=== PATIENT | male | born 1965 | race Caucasian/White ===

== ENCOUNTER 2018-05-18 19:12 | Emergency (ER) | payer BC ==
--- NOTE | 2018-05-18 20:14 | RAD REPORT ---
EXAM DESCRIPTION: RAD - Abdomen Acute Series - 05/18/2018 8:02 pm CLINICAL HISTORY: Abdominal pain/constipation FINDINGS: The lungs appear clear. Free air is not seen beneath the diaphragm. The bowel gas pattern is unremarkable with a moderate to large amount of stool within the colon. Small calcification in the left pelvis probably represent phleboliths
[2018-05-18] MEDS ORDERED: MEPERIDINE HCL 25 MG/0.5 ML ONE (20:22)
[2018-05-18] MEDS ORDERED: NA CHLORIDE 0.9% 1,000 ML ONE (20:22)
[2018-05-18] MEDS ORDERED: PROMETHAZINE 25 MG/ML VIAL ONE (20:22)
[2018-05-18 20:35] LABS: Absolute Lymphocytes (CBC) 0.9 K/uL (0.7-4.9); Absolute Monocytes 0.6 K/uL (0.1-1.3); Basophils % 0.5 % (0-1.3); Eosinophils % 0.3 % (0-4.4); Hematocrit 52.6 % (39.6-49.0); Lymphocytes % 6.4 % (15.3-44.8); MCH 29.4 pg (27.0-35.0); MCV 86.9 fL (80-100); MPV 8.3 fL (7.6-11.3); Monocytes % 4.4 % (3.3-12.3); RBC Red Blood Cell Count 6.05 M/uL (4.33-5.43)
[2018-05-18] MEDS ORDERED: MINERAL OIL ENEMA 135 ML BTL PR ONE (20:37)
[2018-05-18] MEDS ORDERED: MAGNESIUM CITRATE 300 ML BOT ONE (20:37)
[2018-05-18 20:38] LABS: Potassium 3.5 mmol/L (3.5-5.1)
[2018-05-18 21:00] LABS: Platelet Estimate ADEQ; Platelets, Giant FEW; Urine White Blood Cell Casts OK
[2018-05-18 21:01] LABS: Blood Morphology Comment NOT SEEN (NOT SEEN)
--- NOTE | 2018-05-18 21:32 | ER ---
Nurse's Notes [facility] Name: Devonte Keller Age: 52 yrs Sex: Male : 1965 Arrival Date: 05/18/2018 Time: 19:14 Bed 23 Private MD: Diagnosis: Abdominal pain. Constipation Presentation: 05/18 19:18 Presenting complaint: Patient states: tricep repair on Sunday, has not had BM since la1 then, on norco for pain at home. Transition of care: patient was not received from another setting of care. Onset of symptoms was May 18, 2018. Risk Assessment: Do you want to hurt yourself or someone else? Patient reports no desire to harm self or others. Initial Sepsis Screen: Does the patient meet any 2 criteria? Yes Does the patient have a suspected source of infection? No. Patient's initial sepsis screen is negative. Care prior to arrival: None. 19:18 Method Of Arrival: Ambulatory la1 19:18 Acuity: ALEXIA 3 la1 Historical: - Allergies: 19:19 No Known Allergies; la1 - PMHx: 19:19 None; la1 - Immunization history:: Adult Immunizations up to date. - Social history:: Smoking status: Patient/guardian denies using tobacco. - Ebola Screening: : No symptoms or risks identified at this time. Screenin:20 Abuse screen: Denies threats or abuse. Denies injuries from another. Nutritional kr2 screening: No deficits noted. Tuberculosis screening: No symptoms or risk factors identified. Fall Risk None identified. Assessment: 19:20 General: Appears in no apparent distress. uncomfortable, well groomed, well developed, kr2 well nourished, Behavior is calm, cooperative, appropriate for age. Pain: Complains of pain in abdomen Pain does not radiate. Pain currently is 10 out of 10 on a pain scale. Quality of pain is described as aching, tender, Is continuous, Alleviated by nothing. Neuro: Level of Consciousness is awake, alert, obeys commands, Oriented to person, place, time, situation. Cardiovascular: Capillary refill < 3 seconds in bilateral fingers Patient's skin is warm and dry. Respiratory: Airway is patent Respiratory effort is even, unlabored, Respiratory pattern is regular, symmetrical. GI: Abdomen is distended, Reports No BM since before tricep repair on Wednesday. : Denies inability to void. Derm: Skin is intact, is healthy with good turgor. Musculoskeletal: Circulation, motion, and sensation intact. Patient has splint to right arm due to tricep repair. 20:30 Reassessment: Patient appears in no apparent distress at this time. Patient and/or kr2 family updated on plan of care and expected duration. Pain level reassessed. Patient is alert, oriented x 3, equal unlabored respirations, skin warm/dry/pink. Patient states feeling better. 21:00 Reassessment: Patient appears in no apparent distress at this time. Patient and/or kr2 family updated on plan of care and expected duration. Pain level reassessed. Patient is alert, oriented x 3, equal unlabored respirations, skin warm/dry/pink. Patient had large bowel movement and states he feels "much better". 21:46 Reassessment: Patient appears in no apparent distress at this time. Patient and/or kr2 family updated on plan of care and expected duration. Pain level reassessed. Patient is alert, oriented x 3, equal unlabored respirations, skin warm/dry/pink. Patient denies pain at this time. Patient states feeling better. Vital Signs: 19:19 BP 163 / 91; Pulse 101; Resp 16; Temp 98.3; Pulse Ox 98% on R/A; Weight 92.99 kg; la1 Height 5 ft. 7 in. (170.18 cm); 21:46 BP 145 / 88; Pulse 95; Resp 16; Pulse Ox 99% on R/A; kr2 19:19 Body Mass Index 32.11 (92.99 kg, 170.18 cm) la1 ED Course: 19:14 Patient arrived in ED. la1 19:15 Rolly Jade MD is Attending Physician. pkl 19:19 Triage completed. la1 19:19 Arm band placed on right wrist. la1 19:20 Patient has correct armband on for positive identification. Bed in low position. Call kr2 light in reach. Side rails up X 1. Adult w/ patient. Pulse ox on. NIBP on. Door closed. Warm blanket given. Head of bed lowered. 19:40 Inserted saline lock: 20 gauge in left antecubital area, using aseptic technique. Blood kr2 collected. 20:01 XRAY Abdomen Acute Series In Process Unspecified. EDMS 20:13 X-ray completed. Patient tolerated procedure well. Patient moved back from radiology. mh1 20:51 Fleets enema given. Patient tolerated well. rv 21:45 Dalila Yates, RN is Primary Nurse. kr2 21:47 No provider procedures requiring assistance completed. IV discontinued, intact, kr2 bleeding controlled, No redness/swelling at site. Pressure dressing applied. Administered Medications: Discontinued: NS 0.9% 1000 ml IV at 100 ml/hr once 20:00 Drug: NS 0.9% 1000 ml Route: IV; Rate: 1 bolus; Site: left antecubital; rv 20:50 Follow up: Response: No adverse reaction; IV Status: Completed infusion kr2 20:00 Drug: Demerol 25 mg Route: IVP; Site: left antecubital; rv 20:30 Follow up: Response: No adverse reaction; Pain is decreased kr2 20:00 Drug: Phenergan 12.5 mg Route: IVP; Site: left antecubital; rv 21:50 Follow up: Response: No adverse reaction kr2 20:30 Drug: Magnesium Citrate Liquid 300 ml Route: PO; rv 21:48 Follow up: Response: No adverse reaction; Marked relief of symptoms kr2 20:45 Drug: Mineral Oil 133 ml Route: [place]; rv 21:47 Follow up: Response: No adverse reaction; Marked relief of symptoms kr2 20:50 Drug: NS 0.9% 1000 ml Route: IV; Rate: 100 ml/hr; Site: left antecubital; rv 21:49 Follow up: Response: No adverse reaction; IV Status: Order to discontinue infusion kr2 Outcome: 21:31 Discharge ordered by . saturnino 21:47 Discharged to home via wheelchair, with family. kr2 21:47 Condition: good 21:47 Discharge instructions given to patient, family, Instructed on discharge instructions, follow up and referral plans. Demonstrated understanding of instructions, follow-up care. 21:51 Patient left the ED. kr2 Signatures: Dispatcher [employer] EDMS Rolly Jade MD MD pkl Harvey, Martha 1 Pedro Pablo Ramirez RN RN la1 Dalila Yates, RN RN kr2 Nain Montero RN RN rv Corrections: (The following items were deleted from the chart) 21:50 20:45 Response: No adverse reaction; Pain is decreased kr2 kr2
--- NOTE | 2018-05-18 21:32 | EDPHYS ---
Physician Documentation [facility] Name: Devonte Keller Age: 52 yrs Sex: Male : 1965 Arrival Date: 05/18/2018 Time: 19:14 Bed 23 Private MD: ED Physician Rolly Jade HPI: 05/18 19:31 This 52 yrs old Male presents to ER via Ambulatory with unknown complaint. pkl 19:31 The patient presents with abdominal pain that is diffuse. Onset: The symptoms/episode pkl began/occurred 4 day(s) ago. Associated signs and symptoms: Pertinent positives: constipation. Patient had right triceps repair 4 days ago. Has been taking Kechi for pain. Unable to have bowel movements since surgery. Historical: - Allergies: 19:19 No Known Allergies; la1 - PMHx: 19:19 None; la1 - Immunization history:: Adult Immunizations up to date. - Social history:: Smoking status: Patient/guardian denies using tobacco. - Ebola Screening: : No symptoms or risks identified at this time. ROS: 19:31 Eyes: Negative for injury, pain, redness, and discharge, ENT: Negative for injury, pkl pain, and discharge, Neck: Negative for injury, pain, and swelling, Cardiovascular: Negative for chest pain, palpitations, and edema, Respiratory: Negative for shortness of breath, cough, wheezing, and pleuritic chest pain. 19:31 Abdomen/GI: Positive for abdominal pain, constipation, of the right upper quadrant, left upper quadrant, right lower quadrant and left lower quadrant. 19:31 Back: Negative for acute changes. 19:31 : Negative for urinary symptoms. 19:31 MS/extremity: Negative for acute changes. 19:31 Skin: Negative for rash. 19:31 Neuro: Negative for altered mental status. Exam: 20:32 Head/Face: Normocephalic, atraumatic. Eyes: Pupils equal round and reactive to light, pkl extra-ocular motions intact. Lids and lashes normal. Conjunctiva and sclera are non-icteric and not injected. Cornea within normal limits. Periorbital areas with no swelling, redness, or edema. ENT: Nares patent. No nasal discharge, no septal abnormalities noted. Tympanic membranes are normal and external auditory canals are clear. Oropharynx with no redness, swelling, or masses, exudates, or evidence of obstruction, uvula midline. Mucous membranes moist. Neck: Trachea midline, no thyromegaly or masses palpated, and no cervical lymphadenopathy. Supple, full range of motion without nuchal rigidity, or vertebral point tenderness. No Meningismus. Chest/axilla: Normal chest wall appearance and motion. Nontender with no deformity. No lesions are appreciated. Cardiovascular: Regular rate and rhythm with a normal S1 and S2. No gallops, murmurs, or rubs. Normal PMI, no JVD. No pulse deficits. Respiratory: Lungs have equal breath sounds bilaterally, clear to auscultation and percussion. No rales, rhonchi or wheezes noted. No increased work of breathing, no retractions or nasal flaring. 20:32 Abdomen/GI: Bowel sounds: normal, Palpation: soft, mild abdominal tenderness, in the right lower quadrant and left lower quadrant, Rectal exam: rectal tone normal, fecal impaction, that is mild. 20:32 Back: Exam negative for acute changes. 20:32 : Exam negative for acute changes. 20:32 Musculoskeletal/extremity: Exam is negative for acute changes. 20:32 Skin: Exam negative for rash. 20:32 Neuro: Orientation: is normal, Mentation: is normal, Cranial nerves: grossly normal, Motor: is normal. Vital Signs: 19:19 BP 163 / 91; Pulse 101; Resp 16; Temp 98.3; Pulse Ox 98% on R/A; Weight 92.99 kg; la1 Height 5 ft. 7 in. (170.18 cm); 21:46 BP 145 / 88; Pulse 95; Resp 16; Pulse Ox 99% on R/A; kr2 19:19 Body Mass Index 32.11 (92.99 kg, 170.18 cm) la1 MDM: 19:15 Patient medically screened. pkl 21:29 Data reviewed: vital signs, nurses notes, lab test result(s), radiologic studies, plain pkl films. ED course: Patient had good bowel movement in ER. Feeling much better now. 05/18 19:29 Order name: CBC with Diff; Complete Time: 21:31 pkl 05/18 19:29 Order name: Chem 7; Complete Time: 20:43 pkl 05/18 19:29 Order name: XRAY Abdomen Acute Series; Complete Time: 20:17 pkl 05/18 20:39 Order name: CBC Smear Scan; Complete Time: 21:31 EDMS Administered Medications: Discontinued: NS 0.9% 1000 ml IV at 100 ml/hr once 20:00 Drug: NS 0.9% 1000 ml Route: IV; Rate: 1 bolus; Site: left antecubital; rv 20:50 Follow up: Response: No adverse reaction; IV Status: Completed infusion kr2 20:00 Drug: Demerol 25 mg Route: IVP; Site: left antecubital; rv 20:30 Follow up: Response: No adverse reaction; Pain is decreased kr2 20:00 Drug: Phenergan 12.5 mg Route: IVP; Site: left antecubital; rv 21:50 Follow up: Response: No adverse reaction kr2 20:30 Drug: Magnesium Citrate Liquid 300 ml Route: PO; rv 21:48 Follow up: Response: No adverse reaction; Marked relief of symptoms kr2 20:45 Drug: Mineral Oil 133 ml Route: [place]; rv 21:47 Follow up: Response: No adverse reaction; Marked relief of symptoms kr2 20:50 Drug: NS 0.9% 1000 ml Route: IV; Rate: 100 ml/hr; Site: left antecubital; rv 21:49 Follow up: Response: No adverse reaction; IV Status: Order to discontinue infusion kr2 Disposition: 05/18/18 21:31 Discharged to Home. Impression: Abdominal pain. Constipation. - Condition is Stable. - Medication Reconciliation Form, Thank You Letter, Antibiotic Education, Prescription Opioid Use form. - Follow up: Private Physician; When: 2 - 3 days; Reason: Re-evaluation by your physician. - Problem is new. - Symptoms have improved. Signatures: Dispatcher [employer] EDMS Rolly Jade MD MD pkl Attema, Lee RN RN la1 Dalila Yates RN RN kr2 Nain Montero RN RN rv Corrections: (The following items were deleted from the chart) 21:51 21:31 05/18/2018 21:31 Discharged to Home. Impression: Abdominal pain. Constipation. kr2 Condition is Stable. Forms are Medication Reconciliation Form, Thank You Letter, Antibiotic Education, Prescription Opioid Use. Follow up: Private Physician; When: 2 - 3 days; Reason: Re-evaluation by your physician. Problem is new. Symptoms have improved. pkl
== END 2018-05-18 21:51 | disposition home or self-care (01) ==
LOC: ER 19:12
DX: K59.00 Constipation, unspecified (principal)
CPT/HCPCS: 36415; 74022; 80048; 85025; 96361; 96374; 96375; 99284; J2175; J2550; J7030

== ENCOUNTER 2023-08-30 06:30 | Day surgery (SDC) | payer OTHER ==
[2023-08-30] MEDS ORDERED: KETAMINE HCL IN 0.9 % NACL 50 MG/5 ML SYRINGE IV ONE (06:54)
[2023-08-30] MEDS ORDERED: ROCURONIUM 50 MG/5 ML VIAL IV ONE (06:54)
[2023-08-30] MEDS ORDERED: LIDOCAINE 1% MPF 5 ML VIAL ONE (06:54)
[2023-08-30] MEDS ORDERED: propofoL 200 MG/20 ML VIAL IV ONE (06:54)
[2023-08-30] MEDS ORDERED: MIDAZOLAM HCL 2 MG/2 ML INJ ONE (06:54)
[2023-08-30] MEDS ORDERED: dexAMETHasone 10 MG/ML VIAL ONE (06:54)
[2023-08-30] MEDS ORDERED: FENTANYL CITR 100 MCG/2 ML ONE ×2 (06:54→08:36)
[2023-08-30] MEDS ORDERED: ONDANSETRON 4 MG/2 ML VIAL ONE ×2 (06:54→10:42)
[2023-08-30] MEDS: Ringers Lactate 1,000 ML IV ONE (07:02)
[2023-08-30] MEDS ORDERED: NA CHLORIDE 0.9% 1,000 ML ONE (07:04)
[2023-08-30] MEDS ORDERED: BACITRACIN OINTMENT 14 GM TUBE TOP ONE (07:04)
[2023-08-30] MEDS ORDERED: OXYMETAZOLINE HCL 0.05% 15ML NAS ONE (07:08)
[2023-08-30] MEDS: OXYMETAZOLINE HCL 0.05% 15ML NAS ONE (07:10)
[2023-08-30] MEDS: LIDOCAINE HCL/EPINEPHRINE 20 ML MDV ONE (08:00)
[2023-08-30] MEDS: CEFAZOLIN SODIUM 2 GM/VIAL ONE (08:05)
[2023-08-30] MEDS ORDERED: HYDRALAZINE HCL 20 MG/ML VIAL ONE (08:23)
[2023-08-30] MEDS: MEPERIDINE HCL 25 MG/ML SYR ONE (09:50)
[2023-08-30] MEDS ORDERED: NA CHLORIDE 0.9% 250 ML ONE (10:42)
[2023-08-30] MEDS ORDERED: KETOROLAC 30 MG/ML INJ ONE (10:42)
[2023-08-30] MEDS ORDERED: HYDROCODONE/APAP 7.5/325 MG TAB ONE (10:42)
[2023-08-30] MEDS: KETOROLAC 30 MG/ML INJ IV ONE (10:46)
[2023-08-30] MEDS: ONDANSETRON 4 MG/2 ML VIAL IV ONE (10:47)
[2023-08-30] MEDS: HYDROCODONE/APAP 7.5/325 MG TAB PO ONE (10:50)
[2023-08-30 12:16] VITALS: BP 149/78; TEMP 98.3; O2SAT 99
--- NOTE | 2023-08-30 14:50 | EKG ---
Test Date: 2023-08-27 Test Time: 12:02:09 Perinatology Physician: SUZAN MEASUREMENT RESULTS: Intervals: Rate: 64 NE: 152 QRSD: 98 QT: 388 QTc: 400 [place]: P: 62 NE: 152 QRS: -28 T: 65 INTERPRETIVE STATEMENTS: Normal sinus rhythm Normal ECG No previous ECG available for comparison Electronically Signed On 08-30-23 14:43:57 [employer] by Toni Benson
--- NOTE | 2023-09-02 18:53 | OP ---
Date of Procedure: 08/30/2023 Surgeon: JAQUELINE THOMAS Preoperative Diagnoses: 1.External nasal deformity, nasal tip ptosis. 2.Bilateral nasal septal deviation. 3.Bilateral inferior turbinate hypertrophy. 4.Bilateral nasal septal swell bodies. Postoperative Diagnoses: 1.External nasal deformity, nasal tip ptosis. 2.Bilateral nasal septal deviation. 3.Bilateral inferior turbinate hypertrophy. 4.Bilateral nasal septal swell bodies. Operations: 1.Endoscopic septoplasty. 2.Nasal tip rhinoplasty. 3.Bilateral inferior turbinate submucosal Coblation. 4.Bilateral destruction of intranasal lesion with radiofrequency. Anesthesia: General endotracheal anesthesia was administered. I also infiltrated approximately 14 m L of 1% lidocaine with 1:100,000 epinephrine into bilateral nasal septal mucosa, bilateral inferior t urbinate mucosa, and bilateral nasal sidewalls. Estimated Blood Loss: Approximately 75 to 100 mL. Specimens: None. Findings: Bilateral nasal obstruction secondary to nasal septal deviation with moderate inferior tur binate hypertrophy and nasal septal swell bodies. Complications: None. Disposition: Stable. The patient tolerated the procedure well. Indication For Procedure: The patient is a pleasant 57-year-old male, who in my outpatient clinic wi th bilateral nasal obstruction and nasal tip ptosis which was worsening his nasal obstruction. On ex amination, he has bilateral nasal septal deviation, left greater than right, caudal nasal septal swel l bodies which were obstructing his nasal cavity as well as moderate inferior turbinate hypertrophy a nd a nasolabial acute angle less than 90 degrees causing collapse of his nasal tip. These were indic ations to bring the patient to operative suite for the above-mentioned procedures. He understood, al l questions were answered. Risks versus benefits, complications were explained in detail and a conse nt form was signed which was placed in the chart. Description Of Procedure: The patient was transferred from the preoperative holding area to the oper ative suite by Department of Anesthesia, placed on the operating table supine, sedated and intubated in normal fashion. Table was rotated 180 degrees and a head rest was placed. Bilateral inferior tur binate and nasal septal mucosa were infiltrated with approximately 10 mL of 1% lidocaine with 1:100,0 00 epinephrine and Afrin-soaked nasal pledgets were used for vasoconstriction and decongestion and th james were inserted into bilateral nasal cavities. The patient was then sterilely prepped and draped. Our attention was placed to the septum in which a modified [place] incision was made into the left na marisa septal mucosa down to the perichondrium, and the perichondrium was elevated off the bony cartilag inous septum. A crossover incision was made with a sickle knife and then the right-sided nasal septa l mucosa was elevated along with perichondrium off the bony cartilaginous septum and then the cartila ge and bone were isolated with a long nasal speculum. The obstructive areas of the nasal septum were removed with sickle knife and Mega forceps. The patient had a large left posterior septal spur , which was removed with a chisel and Mega forceps. Part of the caudal septum was removed in or mendoza to give the nasal tip some lift and this was done with a sickle knife and Mega forceps. The depressor septi muscle was left as this was not contributing to his nasal tip collapse. Once the ob structive pieces were removed, the nasal septal mucosa was reapproximated in a box like fashion with 4-0 plain gut suture followed by mucosal incision reapproximation with 4-0 plain gut suture in a cont inuous running fashion. Next, my attention was placed to the turbinates, whereby the Coblation 1 was used to make the incision between the mucosa and the bony turbinate on the left side and submucosal Coblation was performed with 7 for ablation and 3 for coagulation. The incision was then cauterized utilizing the Coblation wand. This procedure was repeated on the right, whereby the incision was mad e with the Coblation wand into its pocket between the mucosa and the turbinate bone and submucosal Co blation was performed with 7 of ablation and 3 for coagulation and then the incision was cauterized w ith the Coblation wand. Outfracture was performed to obtain a greater patent nasal cavities. I then performed bilateral nasal septal swell body destruction utilize the Coblation wand on a setting 5 fo r ablation and 3 for coagulation. Next, my attention was placed to the external nose, whereby I created a port hole with an 18-gauge ne edle at the area of the center frontalis muscle and once that tunnel was created, I then infiltrated 2 tunnels extending from the frontalis muscle to the nasal tip on either side of the nasal dorsum. I was able to get some hydrodissection with the anesthetic, which was approximately 4 mL of 1% lidocai ne with 1:100,000 epinephrine. I then inserted two 19-gauge 4 cm V Soft Lift lifting threads into th e port hole and along either side of the nasal dorsum to obtain a lift of the nasal tip. The threads were inserted down to the nasal ala on either side of the dorsum and then were pulled superiorly in order to obtain a nice lift of the nasal tip. The extra thread was cut at the base at the frontalis muscle and a compressive dressing was placed. Two Rodriguez splints coated with antibiotic ointment were inserted into bilateral nasal cavities and sec ured to the caudal septum with a 2-0 Prolene suture. A mustache dressing was placed. He was transfe rred back to Department of Anesthesia in stable condition, where he was subsequently awakened, extuba nat, and transferred to the postoperative care unit. He will be discharged home on antibiotic and an algesia medication and will follow up in 10 days or sooner if needed. MARY/LUIS Voice ID: [id number] Report ID: [id number]
== END 2023-08-30 11:41 | disposition home or self-care (01) ==
LOC: OR 06:30
PROVIDERS: ATTEND Otolaryngology Facial Plastic Surgery
PROC: 09QKXZZ Repair Nasal Mucosa and Soft Tissue, External Approach (ICD-10-PCS; 2023-08-30)
PROC: 09BK8ZZ Excision of Nasal Mucosa and Soft Tissue, Via Natural or Artificial Opening Endoscopic (ICD-10-PCS; 2023-08-30)
PROC: 09JK8ZZ Inspection of Nasal Mucosa and Soft Tissue, Via Natural or Artificial Opening Endoscopic (ICD-10-PCS; 2023-08-30)
PROC: 09SM4ZZ Reposition Nasal Septum, Percutaneous Endoscopic Approach (ICD-10-PCS; principal; 2023-08-30 07:30)
DX: M95.0 Acquired deformity of nose (principal); J34.3 Hypertrophy of nasal turbinates; J34.2 Deviated nasal septum
CPT/HCPCS: 30520; 30400; 30117; 93005; 30802; J0360; J2704; J2001; J2250; J3010 ×2; J1100; J2175; J2405 ×3; J7120; J7050; J7040